=== PATIENT | female | born 1980 | race Caucasian/White ===

== ENCOUNTER 2024-05-06 15:02 | Emergency (ER) | payer OTHER ==
[~2024-05-06] VITALS: Ht 149.9 cm; Wt 62.3 kg
[2024-05-06 15:30] VITALS: BP 139/77; PULSE 69; RESP 17; TEMP 98.2; O2SAT 100
[2024-05-06] MEDS ORDERED: IBUP-2213 PO (17:13)
[2024-05-06 17:52] VITALS: BP 130/76; PULSE 85; RESP 20; TEMP 98.2; O2SAT 98
== END 2024-05-06 17:54 | disposition home or self-care (01) ==
LOC: MED 15:02
DX: R07.89 Other chest pain (principal); R03.0 Elevated blood-pressure reading, without diagnosis of hypertension
CPT/HCPCS: 71045; 93005; 99283; Q0092